=== PATIENT | female | born 2000 ===

== ENCOUNTER 2019-08-24 14:11 | Emergency (ER) | payer MEDICAID ==
[~2019-08-24] VITALS: Ht 170.2 cm; Wt 82.0 kg
[2019-08-24 14:23] VITALS: BP 147/86
[2019-08-24] MEDS ORDERED: SODIUM CHLORIDE 0.9% 1,000 ML IV ONE (16:05)
[2019-08-24] MEDS ORDERED: KETOROLAC 30MG/ML VIAL IV ONE (16:15)
[2019-08-24] MEDS ORDERED: ONDANSETRON HCL 4MG/2ML INJ IV ONE (16:15)
[2019-08-24 16:59] LABS: BASOPHILS % 0.5 % (0.0-2.0); EOSINOPHILS % 0.8 % (0.0-5.0); HEMATOCRIT. 37.5 % (36.0-48.0); HEMOGLOBIN. 12.4 g/dL (12.0-16.0); LYMPHOCYTES % 8.5 % (20.0-50.0); MEAN CORPUSCULAR HEMOGLOBIN 28.4 pg (28.0-32.0); MEAN CORPUSCULAR VOLUME 85.7 fL (81.0-99.0); MEAN PLATELET VOLUME 8.2 fl (7.4-10.4); NEUTROPHILS % 87.2 % (40.0-76.0); PLATELET 307 x1000/uL (130-400); RED BLOOD CELL COUNT 4.38 mill/uL (4.2-5.4); RED CELL DISTRIBUTION WIDTH 18.6 % (11.6-14.6)
[2019-08-24 17:05] LABS: CHLORIDE 106 mEq/L (98-107)
[2019-08-24 17:09] LABS: PROTHROMBIN TIME 10.7 sec (9.6-11.0)
[2019-08-24 17:35] LABS: HCG SCREEN NEGATIVE
[2019-08-24 18:52] LABS: CLARITY URINE CLOUDY (CLEAR); COLOR URINE YELLOW (YELLOW); KETONES URINE 3+ (NEGATIVE); LEUKOCYTE ESTERASE URINE 1+ (NEGATIVE); NITRITE URINE NEGATIVE (NEGATIVE); OCCULT BLOOD URINE 3+ (NEGATIVE); PROTEIN URINE 1+ (NEGATIVE); SPECIFIC GRAVITY URINE 1.028 (1.005-1.030); UROBILINOGEN URINE 0.2 E.U./dL (0.2-1.0)
[2019-08-24 19:03] LABS: UCG SCREEN NEGATIVE
== END 2019-08-24 19:55 | disposition left against medical advice (07) ==
LOC: ER 14:11
DX: R10.2 Pelvic and perineal pain (principal); R03.0 Elevated blood-pressure reading, without diagnosis of hypertension
CPT/HCPCS: 36415; 76856; 80053; 81003; 81025; 84703; 85025; 85610; 87086; 96361; 96374; 96375; 99284; J1885; J2405; J7030